=== PATIENT | male | born 1960 | race Caucasian/White ===

== ENCOUNTER 2017-10-13 16:06 | Emergency (ER) | payer OTHER, BC ==
[~2017-10-13] VITALS: Ht 177.8 cm; Wt 90.7 kg
[2017-10-13 17:11] LABS: MCH 29.5 PG (29.0-34.0); MCHC 33.6 G/DL (30.0-36.0); MCV 87.9 FL (86-99); MEAN PLAT.VOLUME 8.5 uM^3 (9.0-12.4); PLATELET COUNT 237 K/uL (156-360); RBC DIS.WIDTH-CV 12.9 % (11.8-14.6); RBC DIS.WIDTH-SD 41.4 % (39-53); RED BLOOD COUNT 4.78 M/uL (4.00-5.50); WHITE BLOOD COUNT 7.5 K/uL (4.1-10.2)
[2017-10-13 17:21] LABS: CHLORIDE 104 mEq/L (99-109); POTASSIUM 3.8 mEq/L (3.7-5.4); SODIUM 140 mEq/L (136-147)
[2017-10-13 17:23] LABS: GLUCOSE 100 mg/dL (70-99)
[2017-10-13 17:24] LABS: ANION GAP 12 MEQ/L (2-14)
[2017-10-13 17:27] LABS: GFR ESTIMATE (CALCULATED) 56 mL/min/
[2017-10-13 17:28] LABS: UREA NITROGEN (BUN) 17 mg/dL (9-23)
[2017-10-13] MEDS ORDERED: MOTRIN800 MG PO (18:10)
[2017-10-13] MEDS ORDERED: FLEXERIL10 MG PO (18:10)
[2017-10-13 18:15] LABS: ADD MIUA? YES; BILIRUBIN NEGATIVE; BLOOD SMALL; COLOR YELLOW ((YELLOW)); GLUCOSE (STRIP) NEGATIVE; KETONES NEGATIVE; LEUKOCYTES NEGATIVE; NITRITE NEGATIVE; PROTEIN (STRIP) 30; SPECIFIC GRAVITY 1.018 (1.000-1.030); UROBILINOGEN 0.2 MG/DL (0.2-1.0)
[2017-10-13 18:27] LABS: BACTERIA NONE SEEN /HPF; CALCIUM OXALATE CRYSTALS 3+ /HPF; EPITHELIAL CELLS RARE /HPF; MUCUS TRACE /LPF; WHITE BLOOD CELLS 0-5 /HPF (0-5)
[2017-10-13 20:09] VITALS: BP 122/97
[2017-10-14 09:52] LABS: LYME DISEASE SEROLOGY SCREEN NEGATIVE (NEGATIVE)
== END 2017-10-13 20:11 | disposition home or self-care (01) ==
LOC: EME 16:06
PROVIDERS: Nurse Practitioner Family
DX: S00.03XA Contusion of scalp, initial encounter (principal); S23.3XXA Sprain of ligaments of thoracic spine, initial encounter; S80.01XA Contusion of right knee, initial encounter; S80.02XA Contusion of left knee, initial encounter; V43.52XA Car driver injured in collision with other type car in traffic accident, initial encounter; Z88.2 Allergy status to sulfonamides; F17.200 Nicotine dependence, unspecified, uncomplicated
CPT/HCPCS: 70450; 71260; 72070; 74177; 80048; 81003; 85027; 86618; 99281; 99285; J1885; J7030